=== PATIENT | female | born 1955 | race Caucasian/White ===

== ENCOUNTER 2018-07-11 17:29 | Emergency (ER) | payer BC ==
[2018-07-11 18:44] LABS: PTT 27.9 SEC (22.9-36.1); Prothrombin Time 12.9 SEC (12.0-14.7)
--- NOTE | 2018-07-11 18:47 | ULT ---
LEFT LOWER EXTREMITY VENOUS ULTRASOUND WITH DOPPLER: HISTORY: Pain. COMPARISON: None. TECHNIQUE: Retana-scale, color-flow, and Doppler imaging with spectral wave-form analysis was performed of the lef t lower extremity venous system. FINDINGS: There is compressibility, presence of flow, and augmentation in the common femoral vein, femoral vein , and popliteal vein. There is flow in the posterior tibial vein. There is flow in the greater saph enous vein and popliteal vein. In the popliteal fossa, there is a 1.4 x 1.3 x 3.9 cm anechoic focus, which may represent a Sahu's c yst. IMPRESSION: 1. No evidence of thrombus in the left lower extremity deep venous system. 2. Probable Sahu's cyst in the popliteal fossa. Confirm with MRI. POS: PPP
[2018-07-11] MEDS ORDERED: Ketorolac Tromethamine 60 MG/2 ML VIAL ONE (19:25)
== END 2018-07-11 19:56 | disposition home or self-care (01) ==
LOC: ERS 17:29
DX: M71.22 Synovial cyst of popliteal space [Baker], left knee (principal); F32.9 Major depressive disorder, single episode, unspecified; Z87.891 Personal history of nicotine dependence
CPT/HCPCS: 36415; 85610; 85730; 96372; J1885

== ENCOUNTER 2018-09-24 13:24 | Emergency (ER) | payer BC ==
[2018-09-24] MEDS ORDERED: Ondansetron PF 4 MG/2 ML Vial ONE (13:50)
[2018-09-24 14:05] LABS: #Basophils 0.1 thou/uL (0.0-0.2); #Lymphocytes 1.5 thou/uL (1.20-3.40); #Monocytes 0.5 thou/uL (0.11-0.59); #Neutrophils 3.7 thou/uL (1.40-6.50); %Basophils 1.8 % (0.0-1.0); %Eosinophils 0.8 % (0.0-10.0); %Lymphocytes 25.3 % (21.0-51.0); %Monocytes 8.1 % (0.0-10.0); %Neutrophils 64.1 % (42.0-75.0); Mean Corpuscular HGB CONC 35.1 g/dL (32.0-36.0); Mean Corpuscular Hemoglobin 32.8 pg (27.0-31.0); Mean Corpuscular Volume 93.4 fL (78.0-98.0); Mean Platelet Volume 8.7 fL (7.4-10.4); Platelet Count 171 thou/uL (130-400); RBC Distribution Width 12.9 % (11.5-14.5); Red Blood Cell (RBC) Count 4.58 mill/uL (4.20-5.40); White Blood Cell (WBC) Count 5.8 thou/uL (4.8-10.8)
[2018-09-24 14:23] LABS: ALT (SGPT) 19 U/L (8-55); AST (SGOT) 24 U/L (5-34); Albumin 4.4 g/dL (3.4-4.8); Alkaline Phosphatase 99 U/L (40-150); Anion Gap 15 mmol/L (10-20); BUN (Urea Nitrogen) 15 mg/dL (9.8-20.1); Bilirubin, Total 4.1 mg/dL (0.2-1.2); Calc. Creatinine Clearance 0 mL/min (70-130); Calcium 9.4 mg/dL (7.8-10.44); Carbon Dioxide 20 mmol/L (23-31); Chloride 105 mmol/L (98-107); Estimated GFR-MDRD 60; Globulin 3.6 g/dL (2.4-3.5); Glucose 113 mg/dL (80-115); Lipase 8 U/L (8-78); Potassium 3.3 mmol/L (3.5-5.1); Sodium 137 mmol/L (136-145)
[2018-09-24 15:46] LABS: Bilirubin Negative (Negative); Blood, Urine Small (Negative); Clarity CLEAR (Clear); Glucose, Urine (Dipstick) Negative (Negative); Leukocyte Moderate (Negative); Nitrite Negative (Negative); Protein, Urine (Dipstick) Negative (Neg-Trace); Specific Gravity, Urine 1.015 (1.002-1.036)
[2018-09-24 15:48] LABS: Pathc Cast-AUWi Flag 1.16 (0-2.49)
[2018-09-24 16:02] LABS: Bacteria/HPF Rare-Few HPF (None Seen); Hyaline Casts/LPF 0-3 HYALINE CAST LPF (0-3 Hyaline); Other Casts/LPF 0-3 COARSE GRAN LPF (0-3 Hyaline)
== END 2018-09-24 18:24 | disposition home or self-care (01) ==
LOC: ERS 13:24
DX: R11.2 Nausea with vomiting, unspecified (principal); R19.7 Diarrhea, unspecified; F32.9 Major depressive disorder, single episode, unspecified; Z87.891 Personal history of nicotine dependence
CPT/HCPCS: 36415; 80053; 81003; 81015; 83690; 85025; 96361; 96374; J2405

== ENCOUNTER 2019-10-23 10:58 | Outpatient (CLI) | payer MEDICARE, BC ==
--- NOTE | 2019-10-23 13:17 | CT ---
CT ABDOMEN NONCONTRAST CT PELVIS NONCONTRAST: (urolithiasis protocol) DATE: 10/23/2019 HISTORY: 64-year-old female with microscopic hematuria, status post left nephrectomy. COMPARISON: None. TECHNIQUE: IV injection of iodinated contrast media: none Oral contrast media: none FINDINGS: Other than for urolithiasis, the lack of IV and oral contrast limits the evaluation. Left kidney is absent. Multiple surgical clips in the left renal bed and other areas of left retroper itoneum. Clips in gallbladder fossa. No calculus in the right kidney, ureter, or bladder. The 1 cm v mary small right renal upper pole parenchymal cyst found on renal ultrasound is not visible on this no ncontrast CT. No hydronephrosis. Within the limitations of the noncontrast scan, no obvious major pat hology identified involving liver, right kidney, adrenals, pancreas, liver, or spleen. No colonic div erticulitis. No small bowel dilation, ascites, or pneumoperitoneum. Lung bases are grossly clear. No obvious retroperitoneal lymphadenopathy. IMPRESSION: 1. Status post left nephrectomy. 2. Status post cholecystectomy. 3. No urolithiasis or obstructive uropathy. JN R POS: OFF
== END 2019-10-23 10:59 | disposition home or self-care (01) ==
LOC: BICCT 10:58
PROVIDERS: ATTEND Urology
DX: R31.29 Other microscopic hematuria (principal); Z90.5 Acquired absence of kidney; Z90.49 Acquired absence of other specified parts of digestive tract
CPT/HCPCS: 74176

== ENCOUNTER 2019-10-25 06:52 | Outpatient (CLI) | payer MEDICARE, BC ==
[2019-10-25 10:30] LABS: Hemoglobin 13.8 g/dL (12.0-16.0); Mean Corpuscular HGB CONC 34.6 g/dL (32.0-36.0); Mean Corpuscular Hemoglobin 32.6 pg (27.0-31.0); Mean Corpuscular Volume 94.3 fL (78.0-98.0); Platelet Count 203 thou/uL (130-400); RBC Distribution Width 12.9 % (11.5-14.5); Red Blood Cell (RBC) Count 4.24 mill/uL (4.20-5.40); White Blood Cell (WBC) Count 8.8 thou/uL (4.8-10.8)
[2019-10-25 10:40] LABS: Bacteria/HPF 3+ HPF (None Seen); Bilirubin Negative (Negative); Blood, Urine 1+ (Negative); Clarity Turbid (Clear); Glucose, Urine (Dipstick) Normal (Negative); Leukocyte 500 Leu/uL (Negative); Nitrite 2+ (Negative); Protein, Urine (Dipstick) 20 mg/dL (Neg-Trace); Squamous Epithelial 0-3 HPF (0-3); Urobilinogen Normal mg/dL (Less than 2); WBC/HPF Greater than 50 HPF (0-3)
[2019-10-25 10:42] LABS: PTT 27.8 SEC (22.9-36.1); Prothrombin Time 12.8 SEC (12.0-14.7)
[2019-10-25 10:48] LABS: Anion Gap 9 mmol/L (10-20); BUN (Urea Nitrogen) 13 mg/dL (9.8-20.1); Calc. Creatinine Clearance 0 mL/min (70-130); Calcium 9.3 mg/dL (7.8-10.44); Carbon Dioxide 28 mmol/L (23-31); Chloride 108 mmol/L (98-107); Estimated GFR-MDRD 61; Glucose 90 mg/dL (80-115); Potassium 4.1 mmol/L (3.5-5.1); Sodium 141 mmol/L (136-145)
== END 2019-10-25 06:53 | disposition home or self-care (01) ==
LOC: LABBT 06:52
PROVIDERS: ATTEND Urology
DX: Z01.818 Encounter for other preprocedural examination (principal); K59.00 Constipation, unspecified; R31.29 Other microscopic hematuria; Q60.0 Renal agenesis, unilateral; N39.41 Urge incontinence; Z90.5 Acquired absence of kidney; Z72.0 Tobacco use
CPT/HCPCS: 80048; 81001; 85027; 85610; 85730; 87077; 87086; 87186; 93005; 93010

== ENCOUNTER 2019-11-08 06:23 | Day surgery (SDC) | payer MEDICARE, BC ==
[2019-10-25 09:14] VITALS: BMI 29.4
[2019-11-08] MEDS ORDERED: Sodium Chloride 0.9% 100 ML ONE (07:26)
[2019-11-08] MEDS ORDERED: cefTRIAXone\\ROCEPHIN 2 GM VIAL ONE (07:26)
[2019-11-08] MEDS ORDERED: Fentanyl 100 MCG/2 ML VIAL ONE (08:00)
[2019-11-08] MEDS ORDERED: Iothalamate Meglumine 60% 50 ML VIAL FS ONE (08:01)
[2019-11-08] MEDS ORDERED: Midazolam HCl 2 mg/2 ml Vial ONE (08:03)
--- NOTE | 2019-11-08 08:58 | RAD ---
EXAM: Retrograde IVP HISTORY: History of left nephrectomy. Microscopic hematuria COMPARISON: CT abdomen/pelvis 10/23/2019 FINDINGS/IMPRESSION: Limited intraoperative fluoroscopic views of the retrograde IVP were submitted f or interpretation. Surgical clips are seen in the left abdomen from prior left nephrectomy. Contrast is seen in the right ureter. There is no evidence of hydronephrosis. No obvious filling defe cts are seen.
[2019-11-08] MEDS ORDERED: Lidocaine 1% PF 5 ML VIAL ONE (09:46)
[2019-11-08] MEDS ORDERED: PROPOFOL 200 MG/20 ML VIAL ONE (09:46)
[2019-11-08] MEDS ORDERED: ePHEDrine/0.9% NaCl/PF SYRINGE 50 mg/10 ml ONE (09:46)
--- NOTE | 2019-11-08 14:29 | OP ---
DATE OF PROCEDURE: 11/08/2019 PREOPERATIVE DIAGNOSES: 1. A 64-year-old female, G3, P0, with history of urge incontinence refractory to multiple overactive bladder medications. 2. 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 3. Microscopic hematuria. POSTOPERATIVE DIAGNOSES: 1. A 64-year-old female, G3, P0, with history of urge incontinence refractory to multiple overactive bladder medications. 2. 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 3. Microscopic hematuria. PROCEDURES PERFORMED: Cystoscopy, right retrograde pyelogram, and Botox injection 100 international units. ANESTHESIA: TIVA. COMPLICATIONS: None apparent. DISPOSITION: Recovery room in stable condition. 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 No evidence of malignancy. She presents today for cysto, right retrograde pyelogram for microscopic hematuria workup, and Botox injection for refractory OAB. Her upper tract imaging CT with noncontrast demonstrates no significant pathology of concern. DESCRIPTION OF PROCEDURE: After an informed consent was signed, the patient was taken to the operating room, placed in a dorsal lithotomy position with the genital area prepped and draped in the usual surgical sterile fashion. Bilateral RADHA hose and SCDs were provided. Upon entering the bladder with a 21-[place] cystoscope, there were no bladder tumors. Right UO was identified in normal orthotopic position. A retrograde pyelogram was performed demonstrating no evidence of filling defect. Prompt excretion of contrast was noted. Multiple left retroperitoneal narendra seen consistent with left nephrectomy. Left UO remains in situ. At this time, we transitioned to our Botox injection. Using Botox needle, setting at 4 on the needle, we injected 100 international units, with 20 injection increments. She tolerated the procedure well with no significant bleeding noted. She will be monitored in Day Stay for voiding trial, discharged with Macrobid 100 mg 1 p.o. b.i.d. for 3 days, Azo p.r.n. Return to clinic on November 16, for PVR check. Job ID: [id number] [facility]
== END 2019-11-08 10:15 | disposition home or self-care (01) ==
LOC: SDC 06:23
PROVIDERS: ATTEND Urology
PROC: 3E0K8GC Introduction of Other Therapeutic Substance into Genitourinary Tract, Via Natural or Artificial Opening Endoscopic (ICD-10-PCS; principal; 2019-11-08)
DX: N39.41 Urge incontinence (principal); Z88.2 Allergy status to sulfonamides; Z88.8 Allergy status to other drugs, medicaments and biological substances; Z90.5 Acquired absence of kidney
CPT/HCPCS: 52287; 74420; J0585; C1758; J0696; J2001; J2250; J2704; J3010; J3490

== ENCOUNTER 2020-02-14 13:39 | Emergency (ER) | payer MEDICARE, BC ==
[2020-02-14] MEDS ORDERED: Morphine 4 MG/ML VIAL ONE (15:22)
[2020-02-14] MEDS ORDERED: Ketorolac Tromethamine 30 MG/ML VIAL ONE (15:22)
== END 2020-02-14 15:47 | disposition home or self-care (01) ==
LOC: ERS 13:39
DX: S39.012A Strain of muscle, fascia and tendon of lower back, initial encounter (principal); F32.9 Major depressive disorder, single episode, unspecified; Z87.891 Personal history of nicotine dependence; Z79.899 Other long term (current) drug therapy; X50.1XXA Overexertion from prolonged static or awkward postures, initial encounter
CPT/HCPCS: 96372; 99283; J1885; J2270

== ENCOUNTER 2021-02-24 16:41 | Inpatient (IN) | payer MEDICARE, BC ==
[~2021-02-24 16:41] MED LIST: Iopamidol-370 76% 500 ML 1 ML ONE
[2021-02-24 17:39] LABS: #Basophils 0.1 thou/uL (0.0-0.2); #Eosinphils 0.1 thou/uL (0.0-0.7); #Lymphocytes 2.5 thou/uL (1.20-3.40); #Monocytes 0.5 thou/uL (0.11-0.59); #Neutrophils 5.5 thou/uL (1.40-6.50); %Basophils 1.1 % (0.0-1.0); %Eosinophils 1.1 % (0.0-10.0); %Lymphocytes 28.8 % (21.0-51.0); %Monocytes 6.2 % (0.0-10.0); %Neutrophils 62.8 % (42.0-75.0); Hemoglobin 14.4 g/dL (12.0-16.0); Mean Corpuscular HGB CONC 35.2 g/dL (32.0-36.0); Mean Corpuscular Hemoglobin 33.1 pg (27.0-31.0); Mean Platelet Volume 8.6 fL (7.4-10.4); Platelet Count 201 thou/uL (130-400); RBC Distribution Width 13.2 % (11.5-14.5); Red Blood Cell (RBC) Count 4.36 mill/uL (4.20-5.40); White Blood Cell (WBC) Count 8.7 thou/uL (4.8-10.8)
[2021-02-24 18:01] LABS: ALT (SGPT) 19 U/L (8-55); AST (SGOT) 15 U/L (5-34); Albumin 4.4 g/dL (3.4-4.8); Alkaline Phosphatase 84 U/L (40-110); Anion Gap 13 mmol/L (10-20); BUN (Urea Nitrogen) 17 mg/dL (9.8-20.1); Bilirubin, Total 1.6 mg/dL (0.2-1.2); Calc. Creatinine Clearance 0 mL/min (70-130); Calcium 9.5 mg/dL (7.8-10.44); Carbon Dioxide 25 mmol/L (23-31); Chloride 106 mmol/L (98-107); Globulin 3.4 g/dL (2.4-3.5); Glucose 86 mg/dL (80-115); Protein, Total 7.8 g/dL (5.8-8.1); Sodium 140 mmol/L (136-145)
[2021-02-24 21:13] LABS: Troponin I Less than 0.010 ng/mL (< 0.028)
[2021-02-24] MEDS ORDERED: Zolpidem Tartrate 5 MG TAB PO PRN (22:58)
[2021-02-24] MEDS ORDERED: Acetaminophen 325 MG TAB PO PRN (22:58)
[2021-02-24] MEDS ORDERED: Furosemide 40 MG/4 ML VIAL SLOW IVP SCH (23:15)
[2021-02-24] MEDS ORDERED: Furosemide 40 MG/4 ML VIAL ONE (23:30)
[2021-02-25 00:06] LABS: Troponin I Less than 0.010 ng/mL (< 0.028)
[2021-02-25] MEDS ORDERED: HYDROcodone/Acetaminophen 5/325 mg Tablet ONE ×2 (01:18→10:13)
[2021-02-25] MEDS: HYDROcodone/Acetaminophen 5/325 mg Tablet PO PRN ×2 (01:19→10:24)
[2021-02-25 01:53] LABS: SARS-CoV-2 NAA Rapid Test Not Detected (NotDetected)
[2021-02-25 07:32] LABS: Hemoglobin 13.5 g/dL (12.0-16.0); Mean Corpuscular HGB CONC 33.7 g/dL (32.0-36.0); Mean Corpuscular Hemoglobin 32.1 pg (27.0-31.0); Mean Corpuscular Volume 95.1 fL (78.0-98.0); Mean Platelet Volume 8.9 fL (7.4-10.4); Platelet Count 211 thou/uL (130-400); RBC Distribution Width 13.2 % (11.5-14.5); White Blood Cell (WBC) Count 8.9 thou/uL (4.8-10.8)
[2021-02-25] MEDS ORDERED: Furosemide 40 MG TAB ONE (07:35)
[2021-02-25] MEDS: Furosemide 40 MG TAB PO SCH (07:38)
[2021-02-25 07:45] LABS: Band 1 % (5-11); Lymphocytes 44 % (21-51); MDiff Complete? YES; Monocytes 8 % (0-10); Neutrophil 46 % (42-75); Platelet Morphology Comment Appears Adequate; RBC Morphology Normal; Reactive Lymphocytes 1 % (0-10)
[2021-02-25 07:49] LABS: ALT (SGPT) 13 U/L (8-55); AST (SGOT) 13 U/L (5-34); Alkaline Phosphatase 75 U/L (40-110); Anion Gap 15 mmol/L (10-20); BUN (Urea Nitrogen) 19 mg/dL (9.8-20.1); Bilirubin, Total 1.4 mg/dL (0.2-1.2); Calc. Creatinine Clearance 0 mL/min (70-130); Calcium 9.3 mg/dL (7.8-10.44); Carbon Dioxide 25 mmol/L (23-31); Chloride 104 mmol/L (98-107); Globulin 2.9 g/dL (2.4-3.5); Glucose 93 mg/dL (80-115); Magnesium 2.1 mg/dL (1.6-2.6); Protein, Total 6.9 g/dL (5.8-8.1); Sodium 140 mmol/L (136-145)
[2021-02-25] MEDS ORDERED: Aspirin Chewable 81 MG TAB ONE (08:49)
[2021-02-25] MEDS ORDERED: Famotidine 20 MG TAB ONE (08:49)
[2021-02-25] MEDS ORDERED: Enoxaparin Sodium 40 MG/0.4 ML SYRINGE ONE (08:49)
[2021-02-25] MEDS: Enoxaparin Sodium 40 MG/0.4 ML SYRINGE SC SCH (08:58)
[2021-02-25] MEDS: Lisinopril 2.5 MG TAB PO SCH (08:58)
[2021-02-25] MEDS: Famotidine 20 MG TAB PO SCH ×2 (08:58→21:15)
[2021-02-25] MEDS: Aspirin Chewable 81 MG TAB PO SCH (08:58)
[2021-02-25] MEDS ORDERED: Meclizine HCl 25 MG TAB PO SCH (11:15)
[2021-02-25] MEDS ORDERED: Ondansetron PF 4 MG/2 ML Vial IVP SCH (11:15)
[2021-02-25] MEDS ORDERED: Ondansetron PF 4 MG/2 ML Vial ONE (11:21)
[2021-02-25] MEDS ORDERED: Meclizine HCl 25 MG TAB ONE (11:52)
[2021-02-25] MEDS ORDERED: Acetaminophen 325 MG TAB ONE (11:52)
[2021-02-25 14:01] VITALS: BMI 33.5
[2021-02-25 15:14] LABS: Creatinine, Urine Less than 20.00 mg/dL (47-110); Protein, Urine Random Quant Less than 10 mg/dL (1-14)
[2021-02-26 06:06] LABS: Anion Gap 12 mmol/L (10-20); BUN (Urea Nitrogen) 20 mg/dL (9.8-20.1); Calc. Creatinine Clearance 75 mL/min (70-130); Calcium 9.4 mg/dL (7.8-10.44); Carbon Dioxide 28 mmol/L (23-31); Chloride 104 mmol/L (98-107); Glucose 93 mg/dL (80-115); Potassium 4.4 mmol/L (3.5-5.1); Sodium 140 mmol/L (136-145)
[2021-02-26 06:10] LABS: Troponin I Less than 0.010 ng/mL (< 0.028)
[2021-02-26] MEDS: Aspirin Chewable 81 MG TAB PO SCH (08:56)
[2021-02-26] MEDS: Famotidine 20 MG TAB PO SCH (08:57)
[2021-02-26] MEDS: Enoxaparin Sodium 40 MG/0.4 ML SYRINGE SC SCH (08:57)
[2021-02-26] MEDS: Furosemide 40 MG TAB PO SCH (08:57)
[2021-02-26] MEDS: Lisinopril 2.5 MG TAB PO SCH (08:57)
[2021-02-26] MEDS: HYDROcodone/Acetaminophen 5/325 mg Tablet PO PRN (12:19)
[2021-02-26 16:23] VITALS: BP 116/67; TEMP 97.7
== END 2021-02-26 19:24 | disposition home or self-care (01) | DRG 204 ==
LOC: ERS 16:41 → ERHOLD 19:45 → 2SW 02-25 13:39 → OBSVTOIN 02-26 09:58
PROVIDERS: ADMIT Internal Medicine; ATTEND Family Medicine
DX: R06.00 Dyspnea, unspecified (principal); Q61.3 Polycystic kidney, unspecified; Z90.5 Acquired absence of kidney; I25.10 Atherosclerotic heart disease of native coronary artery without angina pectoris; Z88.2 Allergy status to sulfonamides; Z84.1 Family history of disorders of kidney and ureter; Z87.891 Personal history of nicotine dependence; N18.30 Chronic kidney disease, stage 3 unspecified; M54.9 Dorsalgia, unspecified; I12.9 Hypertensive chronic kidney disease with stage 1 through stage 4 chronic kidney disease, or unspecified chronic kidney disease
CPT/HCPCS: 36415; 71045; 71275; 80048; 80053; 82570; 83735; 83880; 84156; 84443; 84484; 85007; 85025; 85027; 87635; 93005; 93306; 94760; 96372; 96374; 96375; G0378; J1650; J1940; J2405; Q9967; U0002; U0003; U0005

== ENCOUNTER 2021-10-15 11:17 | Outpatient (CLI) | payer MEDICARE, BC | END 2021-10-15 11:18 | disposition home or self-care (01) | LOC: MRI 11:17 | PROVIDERS: ATTEND Family Medicine | DX: M25.511 Pain in right shoulder (principal); M75.121 Complete rotator cuff tear or rupture of right shoulder, not specified as traumatic; S46.911A Strain of unspecified muscle, fascia and tendon at shoulder and upper arm level, right arm, initial encounter; S43.431A Superior glenoid labrum lesion of right shoulder, initial encounter ==

== ENCOUNTER 2024-03-23 13:16 | Outpatient (CLI) | payer MEDICARE | END 2024-03-23 13:17 | disposition home or self-care (01) | LOC: BICCT 13:16 | PROVIDERS: ATTEND Student in an Organized Health Care Education/Training Program | DX: Z12.2 Encounter for screening for malignant neoplasm of respiratory organs (principal); F17.211 Nicotine dependence, cigarettes, in remission; I25.84 Coronary atherosclerosis due to calcified coronary lesion | CPT/HCPCS: 71271 ==

== ENCOUNTER 2025-05-08 13:03 | Outpatient (CLI) | payer MEDICARE | END 2025-05-08 13:04 | disposition home or self-care (01) | LOC: BICULT 13:03 | PROVIDERS: ATTEND Physician Assistant | DX: Z48.816 Encounter for surgical aftercare following surgery on the genitourinary system (principal); N28.1 Cyst of kidney, acquired; Z90.5 Acquired absence of kidney | CPT/HCPCS: 76775 ==

== ENCOUNTER 2025-06-15 12:03 | Outpatient (CLI) | payer MEDICARE ==
[~2025-06-15 12:03] MED LIST changes: +Iopamidol 370 76% 100 ML VIAL ONE; -Iopamidol-370 76% 500 ML 1 ML ONE
== END 2025-06-15 12:04 | disposition home or self-care (01) ==
LOC: CT 12:03
PROVIDERS: ATTEND Internal Medicine
DX: C50.412 Malignant neoplasm of upper-outer quadrant of left female breast (principal)
CPT/HCPCS: 71260; 74177; Q9967

== ENCOUNTER 2025-06-18 09:14 | Outpatient (CLI) | payer MEDICARE | END 2025-06-18 09:15 | disposition home or self-care (01) | LOC: NM 09:14 | PROVIDERS: ATTEND Internal Medicine | DX: C50.412 Malignant neoplasm of upper-outer quadrant of left female breast (principal) | CPT/HCPCS: 78306; A9503 ==

== ENCOUNTER 2025-06-29 13:11 | Outpatient (CLI) | payer MEDICARE | END 2025-06-29 13:12 | disposition home or self-care (01) | LOC: BICMAMMO 13:11 | PROVIDERS: ATTEND Internal Medicine | DX: M81.0 Age-related osteoporosis without current pathological fracture (principal); C50.412 Malignant neoplasm of upper-outer quadrant of left female breast; Z79.818 Long term (current) use of other agents affecting estrogen receptors and estrogen levels | CPT/HCPCS: 77080 ==